=== PATIENT | female | born 1990 ===

== ENCOUNTER → 2018-10-20 22:49 | Outpatient (REF) | payer OTHER, SELFPAY ==
[2018-10-20 23:47] LABS: Add Manual Diff / Slide Review NO; Basophils Absolute Auto 0 /uL (0-100); Basophils Percent Auto 0.4 % (0-2); Eosinophils Absolute Auto 100 /uL (0-450); Eosinophils Percent Auto 1.3 % (2-4); Lymphocytes Absolute Auto 1000 /uL (1100-4500); Lymphocytes Percent Auto 25.3 % (25-40); Mean Corpuscular HGB Conc 34.2 % (30-36); Mean Corpuscular Hemoglobin 31.1 PG (26-34); Monocytes Absolute Auto 200 /uL (0-900); Monocytes Percent Auto 5.3 % (3-14); Neutrophils Absolute Auto 2800 /uL (1500-7000); Neutrophils Percent Auto 67.7 % (50-75); Platelet Count 187 X10^3/uL (150-400); Red Blood Cell Count 4.18 X10^6/uL (4.0-5.2); Red Cell Distribution Width 12.4 % (11.6-14.8); White Blood Cell Count 4.2 X10^3/uL (4.5-11.0)
[2018-10-21 00:10] LABS: Erythrocyte Sedimentation Rate 5 MM/HR (0-20)
[2018-10-21 00:14] LABS: Progesterone, Total 0.72 ng/mL
== END ==
LOC: LAB 22:49
PROVIDERS: Visit Provider Naturopath
DX: G43.909 Migraine, unspecified, not intractable, without status migrainosus (principal); K05.10 Chronic gingivitis, plaque induced
CPT/HCPCS: 36415; 84144; 85025; 85651